=== PATIENT | female | born 1985 | race Two or more races ===

== ENCOUNTER 2017-10-04 01:09 | Emergency (ER) | payer OTHER ==
[~2017-10-04] VITALS: Ht 149.9 cm; Wt 76.2 kg
[2017-10-04] MEDS ORDERED: CELEBREX200MG PO (03:31)
== END 2017-10-04 03:41 | disposition home or self-care (01) ==
LOC: ER 01:09
DX: S60.221A Contusion of right hand, initial encounter (principal); W22.8XXA Striking against or struck by other objects, initial encounter; Y93.89 Activity, other specified; Y92.89 Other specified places as the place of occurrence of the external cause; Y99.8 Other external cause status